=== PATIENT | female | born 1940 | race Caucasian/White ===

== ENCOUNTER 2019-04-10 15:51 | Emergency (ER) | payer OTHER ==
[~2019-04-10] VITALS: Ht 165.1 cm; Wt 72.6 kg
[2019-04-10 16:06] VITALS: Ht 165.1 cm; Wt 72.6 kg
[2019-04-10 16:52] LABS: BASOPHIL % 0.4 % (0-2); PLATELET COUNT 144 x10^3mcL (130-400); RED CELL DISTRIBUTION WIDTH 13.5 % (11.5-14.5)
[2019-04-10 17:09] LABS: CALCIUM 9.4 mg/dL (8.5-10.1); CARBON DIOXIDE 29.6 mmol/L (21-32); CHLORIDE SERUM 106 mmol/L (98-107); CREATININE SERUM 1.2 mg/dL (0.6-1.0); GLUCOSE SERUM 98 mg/dL (74-106); POTASSIUM SERUM 4.7 mmol/L (3.5-5.1); SODIUM SERUM 143 mmol/L (136-145)
[2019-04-10 17:13] LABS: ALKALINE PHOSPHATASE 71 U/L (46-116); ALT/SGPT 49 U/L (14-59); AST/SGOT 55 U/L (15-37); BILIRUBIN TOTAL 0.5 mg/dL (0.20-1.00)
[2019-04-10 17:15] LABS: ALBUMIN 3.2 g/dL (3.4-5.0)
[2019-04-10 20:00] VITALS: BP 127/63
== END 2019-04-10 20:00 | disposition home or self-care (01) ==
LOC: ED 15:51
PROVIDERS: Emergency Medicine
DX: R60.9 Edema, unspecified (principal); M79.604 Pain in right leg; M79.605 Pain in left leg; I10 Essential (primary) hypertension; M19.90 Unspecified osteoarthritis, unspecified site
CPT/HCPCS: 83880; J1940; Q0092